=== PATIENT | female | born 1965 | race Caucasian/White ===

== ENCOUNTER 2024-01-07 15:00 | Emergency (ER) | payer BC, SELFPAY ==
[2024-01-07 15:16] VITALS: BP 125/77; PULSE 68; RESP 16; TEMP 36.7; O2SAT 98; BMI 23.1
--- NOTE | 2024-01-07 16:09 | ED.GENADULT ---
HPI - General Adult General Chief complaint: Extremity Pain/Injury, Lower Stated complaint: Leg Time Seen by Provider: 01/07/24 15:32 Source: patient Mode of arrival: ambulatory Limitations: no limitations History of Present Illness HPI narrative: 58-year-old female coming in today complaining of knee pain, swelling and bruising that she noticed. The knee pain started approximately 10 days ago and the bruising yesterday and has worsened today. She denies any systemic symptoms like fevers, chills, nausea or vomiting. She states that movement does make the pain worse, rest makes it better. She states that she was seen by her primary care provider and they did blood work and x-rays of the knee and she was told that everything was normal. She comes in today because the bruising has gotten worse. She denies any history of bleeding disorders and she is not on any blood thinners. 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 She does state that when she cleans houses she does so on her hands and knees. She also baby sits her grand babies and plays with them on her knees. She does state that she cleaned a house shortly before her symptoms began. Related Data Home Medications ?Medication ?Instructions ?Recorded ?Confirmed methylprednisolone 4 mg tablets in 0 mg PO 01/07/24 01/07/24 a dose pack sertraline 100 mg tablet 100 mg PO DAILY 01/07/24 01/07/24 Allergies Allergy/AdvReac Type Severity Reaction Status Date / Time No Known Drug Allergies Allergy Verified 01/07/24 14:51 Review of Systems Status of ROS: Reports: 10 or more systems reviewed and unremarkable except as noted in History and below [facility] Surgical History History of hysterectomy ?Z90.710 - Acquired absence of both cervix and uterus (ICD-10) History of phacoemulsification of cataract of right eye with intraocular lens implantation (05/2017) ?Z98.41 - Cataract extraction status, right eye (ICD-10) ?Z96.1 - Presence of intraocular lens (ICD-10) Social History Smoking Status: Former smoker What tobacco products do you use: cigarettes Smoking quit date/years: >15 years ago Exam Narrative: Exam Narrative: Well-nourished well-developed patient in no acute distress. Alert and oriented. Answers questions appropriately. Mood and affect are appropriate. Thoughts are goal oriented and rational. No tangential or magical thinking noted. Patient speaks in full sentences without needing to catch their breath. Vitals are entirely normal. HEENT: Normocephalic atraumatic. Pupils are equally round reactive to light. Extraocular muscles are intact. Conjunctivae are moist without any icterus noted. Moist mucous membranes. Extremities: Bilateral lower extremities are without edema. Normal DP and PT pulses. The right knee has a swollen prepatellar bursa with surrounding ecchymosis. The ecchymosis encompasses the entire anterior, lateral knee. The ecchymoses goes down the lateral leg all the way to the ankle. She has mild discomfort over the bursa, no tenderness anywhere else on the leg. She has some tenderness with active motion of the neck, no tenderness with passive motion. The area is not red and hot to touch. Skin: Well perfused. Const: Vital Signs, click to edit/add: Vital Signs - 24 hr 01/07/24 15:16 Temperature 98.1 F Pulse Rate [Pulse Oximeter] 68 Respiratory Rate 16 Blood Pressure [Ri ght Upper Arm] 125/77 Pulse Oximetry 98 Oxygen Delivery Me thod Room Air Course Vital Signs Vital signs: Initial Vital Signs Temperature 98.1 F 01/07/24 15:16 Temperature Source Temporal Artery Scan 01/07/24 15:16 Pulse Rate 68 01/07/24 15:16 Respiratory Rate 16 01/07/24 15:16 Blood Pressure 125/77 01/07/24 15:16 Blood Pressure Mean 93 01/07/24 15:16 Blood Pressure Position Sitting 01/07/24 15:16 Pulse Oximetry 98 01/07/24 15:16 Oxygen Delivery Method Room Air 01/07/24 15:16 Vital Signs Temperature 98.1 F 01/07/24 15:16 Pulse Rate 68 01/07/24 15:16 Respiratory Rate 16 01/07/24 15:16 Blood Pressure 125/77 01/07/24 15:16 Pulse Oximetry 98 01/07/24 15:16 Oxygen Delivery Method Room Air 01/07/24 15:16 Temperature 98.1 F 01/07/24 15:16 Pulse Rate 68 01/07/24 15:16 Respiratory Rate 16 01/07/24 15:16 Blood Pressure 125/77 01/07/24 15:16 Pulse Oximetry 98 01/07/24 15:16 Oxygen Delivery Method Room Air 01/07/24 15:16 Medical Decision Making MDM Narrative Medical decision making narrative: 58-year-old female with a traumatic prepatellar bursitis. We discussed symptomatic treatment. Patient already has an appointment with Orthopedics as well for Monday encouraged her to keep that appointment. Discharge Plan Discharge Clinical Impression: Bursitis, prepatellar Patient Disposition: Home, Self-Care Condition: Stable Additional Instructions: Ice 3-4 times per day, 20 minutes at a time. Do not apply ice directly to skin. Elevate legs as much as possible. Avoid any activity that you have to do on your knees. Follow-up with orthopedics as scheduled. Prescriptions: No Action methylprednisolone 4 mg tablets,dose pack 0 mg PO sertraline 100 mg tablet 100 mg PO DAILY Follow Up/Referrals: Frankie Santos MD [Primary Care Provider] - Stand Alone Forms: [employer] Info Instructions
== END 2024-01-07 16:29 | disposition home or self-care (01) ==
LOC: ED 16:23
PROVIDERS: Emergency Provider Family Medicine; PCP Family Medicine
DX: M70.41 Prepatellar bursitis, right knee (principal)
CPT/HCPCS: 99283

== ENCOUNTER 2024-12-27 13:42 | Outpatient (CLI) | payer BC, SELFPAY | END 2024-12-27 13:43 | disposition home or self-care (01) | LOC: NFLDREF 12-31 01:58 | PROVIDERS: PCP Family Medicine; Referring Provider Family Medicine | DX: R30.0 Dysuria (principal); N39.0 Urinary tract infection, site not specified; R35.0 Frequency of micturition | CPT/HCPCS: 87086 ==

== ENCOUNTER 2025-03-27 11:28 | Outpatient (CLI) | payer BC, SELFPAY | END 2025-03-27 11:29 | disposition home or self-care (01) | LOC: NFLDREF 04-01 07:49 | PROVIDERS: PCP Family Medicine; Referring Provider Family Medicine; Visit Provider Physician Assistant | DX: R30.0 Dysuria (principal) | CPT/HCPCS: 87086 ==